=== PATIENT | male | born 1990 | race American Indian/Alaskan Native ===

== ENCOUNTER 2017-12-22 21:29 | Emergency (ER) | payer OTHER ==
[2017-12-22] MEDS ORDERED: MOTRIN PO ONE (22:13)
[2017-12-22] MEDS ORDERED: MOTRIN ONE (22:16)
--- NOTE | 2017-12-22 23:33 | XRay Report ---
FINAL REPORT PROCEDURE: XR SPINE LUMBOSACRAL 2-3V TECHNIQUE: Lumbar spine radiographs, including AP, lateral, and lumbosacral spot views. CPT 38777 HISTORY: pain COMPARISON: No prior studies are available for comparison. FINDINGS: Alignment: Minimal degree levoscoliosis is noted at the thoracolumbar junction. Vertebral body heights/Disk spaces: Normal. Fracture(s): None. Facets: Normal. Bone mineralization: Normal. IMPRESSION: No acute abnormality.
--- NOTE | 2017-12-22 23:34 | XRay Report ---
FINAL REPORT PROCEDURE: XR SPINE CERVICAL 2-3V TECHNIQUE: Cervical spine radiographs, AP, lateral, and open-mouth odontoid views. CPT 07999 HISTORY: pain COMPARISON: No prior studies are available for comparison. FINDINGS: Prevertebral soft tissues: Normal . Alignment: Normal . Vertebral body heights/Disk spaces: Normal . Fracture(s): None . Facets: Normal . Bone mineralization: Normal . IMPRESSION: Normal Examination
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
[2017-12-23 04:49] VITALS: BP 148/81
== END 2017-12-23 04:50 | disposition home or self-care (01) ==
LOC: ED 21:29
DX: S16.1XXA Strain of muscle, fascia and tendon at neck level, initial encounter (principal); S39.012A Strain of muscle, fascia and tendon of lower back, initial encounter; Z88.8 Allergy status to other drugs, medicaments and biological substances; V89.2XXA Person injured in unspecified motor-vehicle accident, traffic, initial encounter; Y93.89 Activity, other specified; Y92.89 Other specified places as the place of occurrence of the external cause; Y99.8 Other external cause status
CPT/HCPCS: 72040; 72100; 99283